=== PATIENT | male | born 1960 | race Hispanic/Latino ===

== ENCOUNTER 2018-11-30 14:47 | Inpatient (IN) | payer MEDICAID, OTHER ==
--- NOTE | 2018-11-30 15:22 | Emergency Department Report ---
Blank Doc - Documentation Documentation: This is a 58-year-old male that presents with chest pain and SOB. HX of [place]. This initial assessment/diagnostic orders/clinical plan/treatment(s) is/are subject to change based on patient's health status, clinical progression and re- assessment by fellow clinical providers in the ED. Further treatment and workup at subsequent clinical providers discretion. Patient/guardians urged not to elope from the ED as their condition may be serious if not clinically assessed and managed. Initial orders include: 1- Patient sent to MAIN ED for further evaluation and treatment 2- CXR 3- EKG 4- labs
[2018-11-30 16:03] LABS: Basophils % (Auto) 0.5 % (0.0-1.8); Eosinophils # (Auto) 0.2 K/mm3 (0.0-0.4); Eosinophils % (Auto) 2.4 % (0.0-4.3); Hemoglobin 14.7 gm/dl (11.8-15.2); Lymphocytes # (Auto) 1.8 K/mm3 (1.2-5.4); Lymphocytes % (Auto) 28.8 % (13.4-35.0); Mean Corpuscular HGB Conc 33 % (32-34); Mean Corpuscular Volume 87 fl (84-94); Monocytes # (Auto) 0.6 K/mm3 (0.0-0.8); Monocytes % (Auto) 9.9 % (0.0-7.3); Platelet Count 243 K/mm3 (140-440); Red Blood Count 5.05 M/mm3 (3.65-5.03)
[2018-11-30 16:12] LABS: INR 0.95 (0.87-1.13)
[2018-11-30 16:13] LABS: Partial Thromboplastin Time 27.3 Sec. (24.2-36.6)
[2018-11-30 16:24] LABS: Alanine Aminotransferase 39 units/L (7-56); Albumin 4.4 g/dL (3.9-5); BUN/Creatinine Ratio 12; Blood Urea Nitrogen 12 mg/dL (9-20); Calcium 9.2 mg/dL (8.4-10.2); Hemolysis Index 38
[2018-11-30] MEDS ORDERED: NORCO 5/325 PO ONE (17:13)
[2018-11-30] MEDS ORDERED: PEPCID IV ONE (17:13)
[2018-11-30] MEDS ORDERED: DUONEB *Not for PRN Use IH ONE (17:13)
[2018-11-30] MEDS ORDERED: SOLU-Medrol IV ONE (17:13)
--- NOTE | 2018-11-30 17:23 | XRay Report ---
PROCEDURE: XR CHEST ROUTINE 2V HISTORY: Chest Pain FINDINGS: Frontal and lateral views the chest were acquired. The heart is mildly large. There is mild hyperinflation of the lungs. There is no consolidative pulmonary infiltrate. The pulmonary vasculatu re is within normal limits. IMPRESSION: The heart is mildly large Hyperinflation consistent with mild COPD This document is electronically signed by Kermit Hernandez MD., Nov 30 2018 05:21:53 PM ET
--- NOTE | 2018-11-30 17:24 | Emergency Department Report ---
ED Chest Pain HPI - General Chief Complaint: Chest Pain Stated Complaint: POSS HEART ATTACK Time Seen by Provider: 11/30/18 15:21 Source: patient Mode of arrival: Ambulatory Limitations: No Limitations - History of Present Illness Initial Comments: 58-year-old male with past medical history CVA with no residual deficit, hypertension, NE 2 with 2 stents, and COPD (no home O2) presents to the hospital with complaints of left-sided chest pain intermittent since this morning. Patient had left-sided chest pain described as stabbing with pain radiation to his left shoulder and arm. Patient has chronic shortness of breath due to COPD. He denies nausea, vomiting and complains of mild diaphoresis. Episode occurred this morning and then reoccurred this afternoon. Patient just traveled here from [place] 6 days ago via airplane. He denies Numbness, leg edema, or history of PE/DVT. Patient has 2 stents in his heart. He's been noncompliant with all his medications for at least 6 months including Plavix and aspirin. He also started smoking again in June. He doesn't have any medication for COPD as well. Patient's PMD is located in [place]. - Related Data Allergies Allergy/AdvReac Type Severity Reaction Status Date / Time No Known Allergies Allergy Unverified 11/30/18 15:20 Heart Score - HEART Score History: Slightly suspicious EKG: Non-specific Age: 45-65 Risk factors: > 3 risk factors or hx of atherosclerotic disease Troponin: < normal limit HEART Score: 4 ED Review of Systems ROS: Stated complaint: POSS HEART ATTACK Other details as noted in HPI Comment: All other systems reviewed and negative ED Past Medical Hx - Past Medical History Hx Hypertension: Yes Hx CVA: Yes (no deficit) Hx Heart Attack/AMI: Yes Hx Kidney Stones: Yes - Surgical History Additional Surgical History: brain surg - Social History Smoking Status: Current Every Day Smoker Substance Use Type: Alcohol ED Physical Exam - General Limitations: No Limitations - Other Other exam information: General: No limitations, patient is alert in no acute distress Head exam: Atraumatic, normocephalic Eyes exam: Normal appearance ENT: Moist mucous membrane Neck exam: Normal inspection, full range of motion, no meningismus nontender Respiratory exam: Mild expiratory wheeze without rales, crackles, or accessory muscle use Cardiovascular: Normal rate and rhythm, tenderness along the left pectoralis muscle extending to show Abdomen: Soft, nondistended, and nontender, with normal bowel sounds, no rebound, or guarding Extremity: Full range of motion normal inspection no deformity, tenderness or edema Back: Normal Inspection, full range of motion, no tenderness Neurologic: Alert, oriented x3, cranial nerves intact, no motor or sensory deficit Psychiatric: normal affect, normal mood Skin: Warm, dry, intact ED Course Vital Signs 11/30/18 11/30/18 11/30/18 15:20 18:25 18:35 Temperature 97.4 F L Pulse Rate 103 H 87 99 H Respiratory 24 18 Rate Blood Pressure 155/110 130/65 Blood Pressure 194/131 [Right] O2 Sat by Pulse 97 100 Oximetry 11/30/18 11/30/18 11/30/18 19:01 20:02 20:05 Temperature Pulse Rate 97 H 107 H 101 H Respiratory 18 20 30 H Rate Blood Pressure Blood Pressure 197/130 176/139 164/118 [Right] O2 Sat by Pulse 100 97 96 Oximetry 11/30/18 21:29 Temperature Pulse Rate 109 H Respiratory 25 H Rate Blood Pressure Blood Pressure 121/69 [Right] O2 Sat by Pulse 98 Oximetry - Consultations Consultation #1: 11/30/18 20:23 case d/w Dr Britany walker cardiology solution advisor. Recommend heparin drip once blood pre ssure decreases to systolic of 150. Also recommends a statin, beta jb, and aspirin. DOUGLAS score - Douglas Score Age > 65: (0) No Aspirin use within the Past 7 Days: (0) No 3 or more CAD Risk Factors: (1) Yes 2 or more Angina events in past 24 hrs: (1) Yes Known CAD with more than 50% Stenosis: (0) No Elevated Cardiac Markers: (1) Yes ST Deviation Greater than 0.5mm: (0) No DOUGLAS Score: 3 ED Medical Decision Making - Lab Data Result diagrams: 11/30/18 15:30 11/30/18 15:30 Lab Results 11/30/18 11/30/18 11/30/18 Range/Units 15:30 15:30 15:30 WBC 6.3 (4.5-11.0) K/mm3 RBC 5.05 H (3.65-5.03) M/mm3 Hgb 14.7 (11.8-15.2) gm/dl Hct 44.0 (35.5-45.6) % MCV 87 (84-94) fl MCH 29 (28-32) pg MCHC 33 (32-34) % RDW 14.0 (13.2-15.2) % Plt Count 243 (140-440) K/mm3 Lymph % (Auto) 28.8 (13.4-35.0) % White % (Auto) 9.9 H (0.0-7.3) % Eos % (Auto) 2.4 (0.0-4.3) % Baso % (Auto) 0.5 (0.0-1.8) % Lymph # 1.8 (1.2-5.4) K/mm3 White # 0.6 (0.0-0.8) K/mm3 Eos # 0.2 (0.0-0.4) K/mm3 Baso # 0.0 (0.0-0.1) K/mm3 Seg Neutrophils % 58.4 (40.0-70.0) % Seg Neutrophils # 3.7 (1.8-7.7) K/mm3 PT 13.2 (12.2-14.9) Sec. INR 0.95 (0.87-1.13) APTT 27.3 (24.2-36.6) Sec. D-Dimer (0-234) ng/mlDDU Sodium 139 (137-145) mmol/L Potassium 4.6 (3.6-5.0) mmol/L Chloride 104.9 (98-107) mmol/L Carbon Dioxide 20 L (22-30) mmol/L Anion Gap 19 mmol/L BUN 12 (9-20) mg/dL Creatinine 1.0 (0.8-1.5) mg/dL Estimated GFR > 60 ml/min BUN/Creatinine Ratio 12 % Glucose 108 H (75-100) mg/dL Calcium 9.2 (8.4-10.2) mg/dL Total Bilirubin 0.30 (0.1-1.2) mg/dL AST 55 H (5-40) units/L ALT 39 (7-56) units/L Alkaline Phosphatase 77 (35-129) units/L Troponin T < 0.010 (0.00-0.029) ng/mL Total Protein 7.3 (6.3-8.2) g/dL Albumin 4.4 (3.9-5) g/dL Albumin/Globulin Ratio 1.5 % Triglycerides (2-149) mg/dL Cholesterol (50-199) mg/dL LDL Cholesterol Direct (50-130) mg/dL HDL Cholesterol (40-59) mg/dL Cholesterol/HDL Ratio % 11/30/18 11/30/18 Range/Units 15:33 18:29 WBC (4.5-11.0) K/mm3 RBC (3.65-5.03) M/mm3 Hgb (11.8-15.2) gm/dl Hct (35.5-45.6) % MCV (84-94) fl MCH (28-32) pg MCHC (32-34) % RDW (13.2-15.2) % Plt Count (140-440) K/mm3 Lymph % (Auto) (13.4-35.0) % White % (Auto) (0.0-7.3) % Eos % (Auto) (0.0-4.3) % Baso % (Auto) (0.0-1.8) % Lymph # (1.2-5.4) K/mm3 White # (0.0-0.8) K/mm3 Eos # (0.0-0.4) K/mm3 Baso # (0.0-0.1) K/mm3 Seg Neutrophils % (40.0-70.0) % Seg Neutrophils # (1.8-7.7) K/mm3 PT (12.2-14.9) Sec. INR (0.87-1.13) APTT (24.2-36.6) Sec. D-Dimer 390.93 H (0-234) ng/mlDDU Sodium (137-145) mmol/L Potassium (3.6-5.0) mmol/L Chloride (98-107) mmol/L Carbon Dioxide (22-30) mmol/L Anion Gap mmol/L BUN (9-20) mg/dL Creatinine (0.8-1.5) mg/dL Estimated GFR ml/min BUN/Creatinine Ratio % Glucose (75-100) mg/dL Calcium (8.4-10.2) mg/dL Total Bilirubin (0.1-1.2) mg/dL AST (5-40) units/L ALT (7-56) units/L Alkaline Phosphatase (35-129) units/L Troponin T 0.070 H D (0.00-0.029) ng/mL Total Protein (6.3-8.2) g/dL Albumin (3.9-5) g/dL Albumin/Globulin Ratio % Triglycerides 92 (2-149) mg/dL Cholesterol 171 (50-199) mg/dL LDL Cholesterol Direct 128 (50-130) mg/dL HDL Cholesterol 44 (40-59) mg/dL Cholesterol/HDL Ratio 3.88 % - EKG Data -: EKG Interpreted by Me (old ant infract, lvh with repol) EKG shows normal: sinus rhythm, axis (qrs -53), QRS complexes (qrsd 85), ST-T waves (no stemi) Rate: tachycardia (110) - EKG Data When compared to previous EKG there are: previous EKG unavailable - Radiology Data Radiology results: report reviewed PROCEDURE: CT ANGIO CHEST TECHNIQUE: Computerized tomographic angiography of the chest was performed during the IV injection of iodinated nonionic contrast including image processing. The image data was postprocessed using 2-dimensional multiplanar reformatted (MPR) and 3-dimensional (MIP and/or volume rendered) techniques. Automated exposure control, adjustment of mA and/or kV according to patient size, or iterative reconstruction dose optimization techniques were utilized. CT DOSE LENGTH PRODUCT: 814.6 mGycm HISTORY: sob, left cp, recent travel, copd . Evaluate pulmonary embolus COMPARISONS: None . FINDINGS: Pulmonary out flow tract, right and left main pulmonary arteries and the approximal branches: Clear, no filling defects seen to suggest pulmonary embolus. Pericardium: No evidence of pericardial effusion. Thoracic aorta: No evidence of aneurysmal dilatation or dissection. Coronary arteries: Partially calcified indicating atherosclerotic disease. Mediastinum and hilar regions: Non specific subcentimeter lymph nodes are v isualized scattered in the hilar and mediastinal regions. There is also a mildly enlarged lymph node in the right infra carinal space measuring 1.6 cm x 1.5 cm. Lung Pappas: [id number] emphysematous changes visualized in the upper lung pappas, lesser changes visualized inferiorly. Small amount of dependent atelectasis is visualized. There are a few nonspecific scattered groundglass densities visualized bilaterally. No dense consolidations masses effusions or pneumothorax are visualized. Upper abdomen: No acute or focal abnormality is seen. Other: There is mild deformity of a a few left ribs posteriorly consistent with old healed fractures. No acute bone abnormalities are identified. IMPRESSION: No evidence of pulmonary embolus. Emphysematous changes are present as described. Nonspecific pulmonary densities scattered in the lung pappas. No dense consolidations masses or effusions are seen. Minimal adenopathy as described. Atherosclerosis coronary arteries. PROCEDURE: XR CHEST ROUTINE 2V HISTORY: Chest Pain FINDINGS: Frontal and lateral views the chest were acquired. The heart is mildly large. There is mild hyperinflation of the lungs. There is no consolidative pulmonary infiltrate. The pulmonary vasculature is within normal limits. IMPRESSION: The heart is mildly large Hyperinflation consistent with mild COPD - Medical Decision Making htn not improved with NTG paste therefore nitroglycerin drip ordered since second troponin is elevated compared to previous. Patient did receive aspirin. Patient received neb treatments and Solu-Medrol for wheezing and COPD. CT angiogram chest negative for pulmonary embolus. Case discussed with lead infrastructure architect. Patient be admitted to the hospital for further treatment. - Differential Diagnosis muscular skeletal pain, PE, unstable angina, NE, COPD, hypertensive emergen Critical Care Time: Yes Critical care time in (mins) excluding proc time.: 35 Critical care attestation.: If time is entered above; I have spent that time in minutes in the direct care of this critically ill patient, excluding procedure time. ED Disposition Clinical Impression: Chest pain, COPD exacerbation, Hx of heart artery stent, Elevated troponin, Uncontrolled hypertension, Noncompliance with medication regimen Disposition: OP ADMIT IP TO THIS HOSP Is pt being admited?: Yes Condition: Stable Time of Disposition: 20:27 (dr Darnell/cristian/hosp)
[2018-11-30] MEDS ORDERED: NITRO-BID 2% TP ONE (17:26)
[2018-11-30] MEDS: ASPIRIN PO ONE ×2 (18:24→19:22)
[2018-11-30 19:55] LABS: Chol/HDL Ratio 3.88 %
--- NOTE | 2018-11-30 20:12 | Cat Scan Report ---
PROCEDURE: CT ANGIO CHEST TECHNIQUE: Computerized tomographic angiography of the chest was performed during the IV injection o f iodinated nonionic contrast including image processing. The image data was postprocessed using 2-d imensional multiplanar reformatted (MPR) and 3-dimensional (MIP and/or volume rendered) techniques. A utomated exposure control, adjustment of mA and/or kV according to patient size, or iterative reconst ruction dose optimization techniques were utilized. CT DOSE LENGTH PRODUCT: 814.6 mGycm HISTORY: sob, left cp, recent travel, copd . Evaluate pulmonary embolus COMPARISONS: None . FINDINGS: Pulmonary out flow tract, right and left main pulmonary arteries and the approximal branches: Clear, no filling defects seen to suggest pulmonary embolus. Pericardium: No evidence of pericardial effusion. Thoracic aorta: No evidence of aneurysmal dilatation or dissection. Coronary arteries: Partially calcified indicating atherosclerotic disease. Mediastinum and hilar regions: Non specific subcentimeter lymph nodes are visualized scattered in the hilar and mediastinal regions. There is also a mildly enlarged lymph node in the right infra carinal space measuring 1.6 cm x 1.5 cm. Lung Pappas: [id number] emphysematous changes visualized in the upper lung pappas, lesser wang es visualized inferiorly. Small amount of dependent atelectasis is visualized. There are a few nonspe cific scattered groundglass densities visualized bilaterally. No dense consolidations masses effusion s or pneumothorax are visualized. Upper abdomen: No acute or focal abnormality is seen. Other: There is mild deformity of a a few left ribs posteriorly consistent with old healed fractures. No acute bone abnormalities are identified. IMPRESSION: No evidence of pulmonary embolus. Emphysematous changes are present as described. Nonspecific pulmonary densities scattered in the lung pappas. No dense consolidations masses or effus ions are seen. Minimal adenopathy as described. Atherosclerosis coronary arteries. This document is electronically signed by Joseph Guillaume MD., Nov 30 2018 08:10:03 PM ET
[2018-11-30] MEDS ORDERED: HEPARIN 10,000 UNITS/10 ML IV ONE (20:28)
[2018-11-30] MEDS ORDERED: TRIDIL DRIP 50MG/250ML 50 MG/250 ML BOTTLE IV SCH (21:00)
[2018-11-30] MEDS ORDERED: TRIDIL DRIP 50MG/250ML 50 MG/250 ML BOTTLE ONE (21:02)
[2018-11-30] MEDS ORDERED: ZOFRAN IV PRN (22:10)
[2018-11-30] MEDS ORDERED: TYLENOL PR PRN (22:10)
[2018-11-30] MEDS ORDERED: HEPARIN 10,000 UNITS/10 ML ONE (22:34)
[2018-11-30] MEDS ORDERED: MORPHINE ONE (22:50)
[2018-11-30] MEDS ORDERED: HEPARIN/ 0.45% NACL-25,000 UNIT/500 ML 25,000 UNIT/500 ML BAG ONE (22:50)
[2018-11-30] MEDS: MORPHINE IV PRN (22:56)
[2018-11-30] MEDS: HEPARIN/ 0.45% NACL-25,000 UNIT/500 ML 25,000 UNIT/500 ML BAG IV SCH (22:57)
[2018-12-01] MEDS: AMBIEN PO PRN ×2 (01:51→22:15)
[2018-12-01] MEDS: DUONEB *Not for PRN Use IH SCH ×4 (01:58→20:41)
[2018-12-01 05:24] LABS: Creatine Kinase MB 16.2 ng/mL (0.0-4.0)
[2018-12-01] MEDS: SOLU-Medrol IV SCH ×3 (06:17→22:14)
--- NOTE | 2018-12-01 08:39 | History and Physical Report ---
CHIEF COMPLAINT: Chest pain. HISTORY OF PRESENT ILLNESS: The patient is a 58-year-old male with past medical history of coronary artery disease, status post myocardial infarction and stent placement presenting with chest pain which the patient states started since morning and affected the left chest area. The patient described the pain as starting with radiation to the left shoulder and arm area. There is history of chronic shortness of breath that the patient gets due to COPD. He has no history of nausea or vomiting, but there is history of mild diaphoresis and the patient recently came to [place] from [place] to visit the father which he says was sick. There is no history of numbness, no history of dizziness or altered mental status. The patient is noncompliant with his medications, going on for about 6 months and this include Plavix and aspirin. The patient was noted to have started smoking again since June after quitting. PAST MEDICAL HISTORY: Pertinent for hypertension, cerebrovascular accident, coronary artery disease, status post myocardial infarction, kidney stones. PAST SURGICAL HISTORY: Pertinent for brain surgery. FAMILY HISTORY: Noncontributory. SOCIAL HISTORY: The patient smokes cigarettes. Drinks alcohol and does not use illicit drug. MEDICATIONS: The patient's home medications are not known. ALLERGIES: There are no known drug allergies. REVIEW OF SYSTEMS: CONSTITUTIONAL: There is no fever, no chills, no diaphoresis. HEENT: There is no headache or sore throat. CARDIOVASCULAR SYSTEM: Chest pain is present. No orthopnea. RESPIRATORY SYSTEM: There is shortness of breath and no cough. GASTROINTESTINAL SYSTEM: There is no nausea, no vomiting, no abdominal pain, diarrhea or constipation. NEUROLOGICAL SYSTEM: There is no numbness, no dizziness, no altered mental status. MUSCULOSKELETAL SYSTEM: There is no joint pain or swelling. DERMATOLOGIC SYSTEM: There is no skin rash or itching. GENITOURINARY SYSTEM: There is no dysuria, hematuria, or flank pain. Rest of system review is normal. PHYSICAL EXAMINATION: GENERAL: At the time of exam, the patient was found to be alert and oriented x 3 and not in acute distress. VITAL SIGNS: At the initial time of presentation show a temperature of 97.4 degrees Fahrenheit, pulse of 103, respirations 24, blood pressure ____, and O2 sat of 97% on room air. Repeat vital signs do show blood pressure to be on the high side. HEENT: Showed pupils to be equal, round, reactive to light and accommodating. Extraocular muscles are intact. NECK: Supple with no JVD or carotid bruit. CARDIOVASCULAR SYSTEM: Showed normal first and second heart sounds with no gallops or murmur. RESPIRATORY SYSTEM: Show good air entry on both sides of the lungs with no abnormal breath sounds. GASTROINTESTINAL SYSTEM: Show abdomen to be full, soft, nontender with no organomegaly or rigidity. NEUROLOGIC: Shows no focal deficit. MUSCULOSKELETAL SYSTEM: Show no joint swelling or tenderness. DERMATOLOGICAL SYSTEM: Show no skin rash. GENITOURINARY: Showing no costovertebral angle tenderness. PERTINENT LABORATORY DATA AND IMAGING STUDIES: The patient had chest x-rays done that shows mild enlargement of the heart with hyperinflation consistent with mild COPD. Also, the patient had CT angiogram of the chest done and CT angiogram of the chest shows no evidence of pulmonary embolism. There is finding of emphysematous changes and no specific pulmonary densities scattered in the lung field with no dense consolidation, masses, or effusions seen. Minimal adenopathy was described and atherosclerotic coronary arteries were found. LAB RESULTS: The patient had CBC done with normal white count, normal hemoglobin, and normal hematocrit with CBC differential showing elevated monocyte count of 9.9%. Coagulation studies show elevated D-dimer of ____. The patient had CT angiogram of the chest done because of that that shows no pulmonary embolism. The patient's chemistry was unremarkable except for elevated AST of 55 with normal ALT. The patient's cardiac enzymes, initial level shows troponin level less than 0.01 and second troponin level shows elevated value of 0.07. DIAGNOSES: 1. Chest pain. 2. Elevated troponin level. 3. Chronic obstructive pulmonary disease exacerbation. PLAN OF CARE: 1. The patient will be admitted to telemetry. 2. The patient will have serial cardiac enzymes involving troponin, total CK, and CK-MB checked every 6 hours x 2 more levels. 3. The patient will continue IV heparin drip that was started in the Emergency Room. 4. The patient will remain n.p.o. until seen by the hospitality coordinator. 5. The patient will have Cardiology consult with Dr. Jenny Gross and will have ICU consult with Dr. Beard for ICU placement. 6. The patient will continue nitroglycerin drip IV started in the Emergency Room. 7.. The patient will be on IV morphine 2 mg every 3 hours as needed for pain and IV Zofran 4 mg every 8 hours for nausea and vomiting. 8. The patient will be on daily aspirin 325 mg by mouth and will be on Tylenol 650 mg rectally every 4 hours for fever and headache. 9. The patient will remain n.p.o. until seen by the Cardiology. 10. The patient will be on oxygen by nasal cannula 2 L per minute. JOB# [id number] OCN/NTS
--- NOTE | 2018-12-01 09:00 | Consultation ---
History of Present Illness Consult date: 12/01/18 Requesting physician: MALGORZATA GIRON History of present illness: 58-year-old male with past medical history CVA with no residual deficit, hypertension, [place] 2 with 2 stents, and COPD (no home O2) presents to the hospital with complaints of left-sided chest pain intermittent since this morning. Patient had left-sided chest pain described as stabbing with pain radiation to his left shoulder and arm. Patient has chronic shortness of breath due to COPD. He denies nausea, vomiting and complains of mild diaphoresis. Episode occurred this morning and then reoccurred this afternoon. Patient just traveled here from [place] 6 days ago via airplane. He denies Numbness, leg edema, or history of PE/DVT. Patient has 2 stents in his heart. He's been noncompliant with all his medications for at least 6 months including Plavix and aspirin. He also started smoking again in June. He doesn't have any medication for COPD as well. Patient's PMD is located in [place]. Patient was initially admitted to the ICU following initiation of nitroglycerin infusion. His doing well this morning. He is awaiting a cardiology evaluation for possible left heart cardiac catheterization - Past Medical History Hx Hypertension: Yes Hx CVA: Yes (no deficit) Hx Heart Attack/AMI: Yes Hx Kidney Stones: Yes - Surgical History Additional Surgical History: brain surg - Social History Smoking Status: Current Every Day Smoker Substance Use Type: Alcohol Medications and Allergies Allergies Allergy/AdvReac Type Severity Reaction Status Date / Time No Known Allergies Allergy Unverified 11/30/18 15:20 Home Medications Medication Instructions Recorded Confirmed Last Taken Type Aspirin [Aspirin BABY CHEW TAB] 81 mg PO QDAY #30 tab.chew 12/02/18 Unknown Rx AtorvaSTATin [Lipitor] 40 mg PO QHS #30 tablet 12/02/18 Unknown Rx Clopidogrel [Plavix] 75 mg PO QDAY #30 tablet 12/02/18 Unknown Rx ISOSORBIDE MONOnitrate [Imdur ER] 30 mg PO QDAY #30 tablet 12/02/18 Unknown Rx Ipratropium/Albuterol Sulfate 1 ampul IH TIDRT #50 ampul.neb 12/02/18 Unknown Rx [DUONEB *Not for PRN Use*] Lisinopril [Zestril TAB] 10 mg PO QDAY #30 tablet 12/02/18 Unknown Rx Metoprolol Xl [Metoprolol 50 mg PO QDAY #30 tablet 12/02/18 Unknown Rx SUCCINATE ER TAB] Oxycodone HCl/Acetaminophen 1 each PO Q6HR PRN #20 tablet 12/02/18 Unknown Rx [Percocet 7.5/325 mg] Plavix 75 mg PO ONCE #30 12/02/18 Unknown Rx Active Meds: Active Medications Acetaminophen (Tylenol) 650 mg [place] Q4H PRN PRN Reason: Headache Albuterol/Ipratropium (Duoneb *Not For Prn Use*) 1 ampul IH Q6HRT [facility] Last Admin: 12/01/18 08:46 Dose: 1 ampul Documented by: Aspirin (Aspirin) 325 mg PO QDAY [facility] Nitroglycerin/Dextrose (Tridil Drip 50mg/250ml) 50 mg in 250 mls @ 3 mls/hr IV TITR [facility]IE; Protocol Last Titration: 11/30/18 22:15 Dose: 10 mcg/min, 3 mls/hr Documented by: Heparin Sodium/Sodium Chloride (Heparin/ 0.45% Nacl-25,000 Unit/500 Ml) 25,000 unit in 500 mls @ 20 mls/hr IV TITRATE [facility]; Protocol Last Titration: 12/01/18 05:43 Dose: 1,000 units/hr, 20 mls/hr Documented by: Methylprednisolone Sodium Succinate (Solu-Medrol) 60 mg IV Q8HR [facility] Last Admin: 12/01/18 06:17 Dose: 60 mg Documented by: Morphine Sulfate (Morphine) 2 mg IV Q3H PRN PRN Reason: Pain, Moderate (4-6) Last Admin: 11/30/18 22:56 Dose: 2 mg Documented by: Ondansetron HCl (Zofran) 4 mg IV Q8H PRN PRN Reason: Nausea And Vomiting Zolpidem Tartrate (Ambien) 5 mg PO QHS PRN PRN Reason: Sleep Last Admin: 12/01/18 01:51 Dose: 5 mg Documented by: Physical Examination Vital signs: Vital Signs Temp Pulse Resp BP Pulse Ox 97.4 F L 103 H 24 155/110 97 11/30/18 15:20 11/30/18 15:20 11/30/18 15:20 11/30/18 15:20 11/30/18 15:20 General appearance: no acute distress Eyes: non-icteric ENT: oropharynx moist Neck: supple, no lymphadenopathy, no JVD Effort: normal Ascultation: Bilateral: clear Cardiovascular: regular rate and rhythm, other (S1,S2, no mururs, gallops or rubs) Gastrointestinal: normoactive bowel sounds, soft, non-tender, non-distended Integumentary: normal Extremities: no cyanosis, no edema, pulses normal, no ischemia or petechiae Musculoskeletal: no deformities normal mental status, non-focal exam, pupils equal and round, CN II-XII normal, motor strength normal and mood appropriate, affect normal Results - Laboratory Findings CBC and BMP: 12/02/18 04:07 12/02/18 04:07 PT/INR, D-dimer PT 13.2 Sec. (12.2-14.9) 11/30/18 15:30 INR 0.95 (0.87-1.13) 11/30/18 15:30 390.93 ng/mlDDU (0-234) H 11/30/18 15:33 Abnormal lab findings: Abnormal Labs 11/30/18 11/30/18 11/30/18 15:30 15:30 15:33 RBC 5.05 H [place] % (Auto) 9.9 H D-Dimer 390.93 H Carbon Dioxide 20 L Glucose 108 H AST 55 H CK-MB (CK-2) CK-MB (CK-2) Rel Index Troponin T 11/30/18 12/01/18 12/01/18 18:29 04:44 07:08 RBC [place] % (Auto) D-Dimer Carbon Dioxide Glucose AST CK-MB (CK-2) 16.2 H 16.0 H CK-MB (CK-2) Rel Index 10.8 H 10.9 H Troponin T 0.070 H D 0.047 H D 0.050 H - Diagnostic Findings Chest x-ray: image reviewed (No acute infiltrates, "dirty lung look") CT scan - chest: report reviewed (No PE, emphysematous changes) Assessment and Plan DIAGNOSIS (1) NSTEMI (non-ST elevated myocardial infarction) (2) Uncontrolled hypertension (3) CAD (coronary artery disease) (4) Stented coronary artery (5) COPD (chronic obstructive pulmonary disease) -Emphysematous changes on CT imaging (6) History of CVA (cerebrovascular accident) without residual deficits (7) Noncompliance with medication regimen (8) Tobacco use disorder (9) EtOH dependence (10) Elevated D-dimer, negative CTA PLAN -Continue cardioprotective measures -Trend troponins per protocol -Wean nitroglycerine infusion -VTE prophylaxis -Nicotine withdrawal precautions -Bronchodilaotrs per protocol -Monitor for alcohol withdrawal, give a banana bag -Smoking and alcohol abuse counselling -Supplemental oxygen to keep O2 sats >90% -Blood pressure control, -Resume chronic home medications -Need for medical compliance and adherence discussed extensively -Await final cardiology recommendations Discussed care extensively in ICU-IDT rounds. Updated patient re care plan Discussed with hospitalist service. The high probability of a clinically significant, sudden or life threatening deterioration of the [cardiac] system(s) required my full and direct attention, intervention and personal management. The aggregate critical care time was [35] minutes. This time is in addition to time spent performing reported procedures but includes the following: [x] Data Review and interpretation [x] Patient assessment and monitoring of vital signs [x] Documentation [x] Medication orders and management
[2018-12-01] MEDS: TOPROL XL PO SCH (09:51)
[2018-12-01] MEDS: ASPIRIN PO SCH (09:51)
[2018-12-01] MEDS: MORPHINE IV PRN ×3 (09:51→22:16)
[2018-12-01] MEDS: ZESTRIL PO SCH (09:52)
--- NOTE | 2018-12-01 11:35 | Consultation ---
History of Present Illness Consult date: 12/01/18 Requesting physician: ANDREINA GUERRA Consult reason: chest pain, elevated troponin History of present illness: The pt is a 58-year-old male with past medical history CAD s/p AMI with PCI x 2 in , CVA in with no residual deficit, hypertension, COPD (no home O2), tobacco use, ETOH use (drinks 1/5 vodka daily), noncompliance. He is previously unknown to our practice. He currently resides in [place], [place] and is in the area visiting his family. He presented with c/o chest pain since yesterday morning. He states that awoke yesterday morning in his normal state of health and was running errands with his father when he noted the onset of chest pain. He describes his chest pain as an intermittent left-sided pressure which radiated down his left arm. The pain was associated with diaphoresis and some SOB. The pain was alleviated by initiation of heparin and nitro gtts. He admits that he has not taken any prescription medications, including ASA or Plavix, in about 3 years. On evaluation, he denies any current chest pain. Past History Past Medical History: acute MD, CAD, COPD, hyperlipidemia, stroke Social history: smoking, alcohol abuse. denies: prescription drug abuse Medications and Allergies Allergies Allergy/AdvReac Type Severity Reaction Status Date / Time No Known Allergies Allergy Unverified 11/30/18 15:20 Home Medications Medication Instructions Recorded Confirmed Last Taken Type Lisinopril [Zestril TAB] 10 mg PO QDAY 12/01/18 12/01/18 07/01/18 History Plavix 75 mg PO ONCE 12/01/18 12/01/18 07/01/18 History Active Meds: Active Medications Acetaminophen (Tylenol) 650 mg [place] Q4H PRN PRN Reason: Headache Albuterol/Ipratropium (Duoneb *Not For Prn Use*) 1 ampul IH Q6HRT [facility] Last Admin: 12/01/18 08:46 Dose: 1 ampul Documented by: Aspirin (Aspirin) 325 mg PO QDAY [facility] Last Admin: 12/01/18 09:51 Dose: 325 mg Documented by: Atorvastatin Calcium (Lipitor) 40 mg PO QHS [facility] Nitroglycerin/Dextrose (Tridil Drip 50mg/250ml) 50 mg in 250 mls @ 3 mls/hr IV TITR [facility]; Protocol Last Titration: 12/01/18 10:25 Dose: 0 mcg/min, 0 mls/hr Documented by: Heparin Sodium/Sodium Chloride (Heparin/ 0.45% Nacl-25,000 Unit/500 Ml) 25,000 unit in 500 mls @ 20 mls/hr IV TITRATE [facility]; Protocol Last Titration: 12/01/18 05:43 Dose: 1,000 units/hr, 20 mls/hr Documented by: Lisinopril (Zestril) 10 mg PO QDAY [facility] Last Admin: 12/01/18 09:52 Dose: 10 mg Documented by: Methylprednisolone Sodium Succinate (Solu-Medrol) 60 mg IV Q8HR [facility] Stop: 12/01/18 23:59 Last Admin: 12/01/18 06:17 Dose: 60 mg Documented by: Metoprolol Succinate (Toprol Xl) 50 mg PO QDAY [facility] Last Admin: 12/01/18 09:51 Dose: 50 mg Documented by: Morphine Sulfate (Morphine) 2 mg IV Q3H PRN PRN Reason: Pain, Moderate (4-6) Last Admin: 12/01/18 09:51 Dose: 2 mg Documented by: Ondansetron HCl (Zofran) 4 mg IV Q8H PRN PRN Reason: Nausea And Vomiting Zolpidem Tartrate (Ambien) 5 mg PO QHS PRN PRN Reason: Sleep Last Admin: 12/01/18 01:51 Dose: 5 mg Documented by: Review of Systems Constitutional: sweats, no weight loss, no weight gain, no fever, no chills Ears, nose, mouth and throat: no ear pain, no nose pain, no sinus pressure, no sinus pain Cardiovascular: chest pain, shortness of breath, high blood pressure, no orthopnea, no palpitations, no rapid/irregular heart beat, no edema, no syncope, no lightheadedness, no leg edema Respiratory: shortness of breath, no cough, no congestion, no wheezing, no pain on inspiration Gastrointestinal: no abdominal pain, no nausea, no vomiting, no diarrhea, no constipation, no change in bowel habits Genitourinary Male: no dysuria, no hematuria, no flank pain, no discharge, no urinary frequency, no urinary hesitancy Musculoskeletal: no neck stiffness, no neck pain, no shooting arm pain, no arm numbness/tingling, no low back pain, no shooting leg pain Integumentary: no rash, no pruritis, no redness, no sores, no wounds Neurological: no head injury, no paralysis, no weakness, no parathesias, no numbness, no tingling, no seizures, no syncope Psychiatric: no anxiety Endocrine: no cold intolerance, no heat intolerance Hematologic/Lymphatic: no easy bruising, no easy bleeding Allergic/Immunologic: no urticaria, no wheezing Physical Examination Vital Signs Temp Pulse Resp BP Pulse Ox 97.4 F L 103 H 24 155/110 97 11/30/18 15:20 11/30/18 15:20 11/30/18 15:20 11/30/18 15:20 11/30/18 15:20 General appearance: no acute distress HEENT: Positive: PERRL, Normocephaly, Mucus Membranes Moist Neck: Positive: neck supple, trachea midline Cardiac: Positive: Reg Rate and Rhythm, S1/S2 Lungs: Positive: clear to auscultation Neuro: Positive: Grossly Intact Abdomen: Positive: Soft. Negative: Tender Male genitourinary: Negative: tender Skin: Negative: Rash, Wound Musculoskeletal: No Pain Extremities: Absent: edema Results 11/30/18 15:30 11/30/18 15:30 Cardiac Enzymes 11/30/18 12/01/18 12/01/18 Range/Units 15:30 04:44 07:08 AST 55 H (5-40) units/L CK-MB (CK-2) 16.2 H 16.0 H (0.0-4.0) ng/mL Coagulation 11/30/18 Range/Units 15:30 PT 13.2 (12.2-14.9) Sec. INR 0.95 (0.87-1.13) APTT 27.3 (24.2-36.6) Sec. Lipids 11/30/18 Range/Units 18:29 Triglycerides 92 (2-149) mg/dL Cholesterol 171 (50-199) mg/dL HDL Cholesterol 44 (40-59) mg/dL Cholesterol/HDL Ratio 3.88 % CBC 11/30/18 Range/Units 15:30 WBC 6.3 (4.5-11.0) K/mm3 RBC 5.05 H (3.65-5.03) M/mm3 Hgb 14.7 (11.8-15.2) gm/dl Hct 44.0 (35.5-45.6) % Plt Count 243 (140-440) K/mm3 Lymph # 1.8 (1.2-5.4) K/mm3 [place] # 0.6 (0.0-0.8) K/mm3 Eos # 0.2 (0.0-0.4) K/mm3 Baso # 0.0 (0.0-0.1) K/mm3 Comprehensive Metabolic Panel 11/30/18 Range/Units 15:30 Sodium 139 (137-145) mmol/L Potassium 4.6 (3.6-5.0) mmol/L Chloride 104.9 (98-107) mmol/L Carbon Dioxide 20 L (22-30) mmol/L BUN 12 (9-20) mg/dL Creatinine 1.0 (0.8-1.5) mg/dL Glucose 108 H (75-100) mg/dL Calcium 9.2 (8.4-10.2) mg/dL AST 55 H (5-40) units/L ALT 39 (7-56) units/L Alkaline Phosphatase 77 (35-129) units/L Total Protein 7.3 (6.3-8.2) g/dL Albumin 4.4 (3.9-5) g/dL - Imaging and Cardiology Echo: pending Cardiac cath: pending EKG: report reviewed, image reviewed EKG interpretations - Telemetry EKG Rhythm: Sinus Rhythm - EKG Sinus rhythms and dysrhythmias: sinus rhythm Chamber hypertrophy or enlargement: left ventricular hypertro Repolarization changes or abnormalities: nonspecific abnormality, ST segment, and/or T wave Assessment and Plan Agree with heparin gtt. Wean nitro gtt off as tolerated. Optimize anti-ischemic regimen. Cont to trend [place] and repeat ECG in AM. Pending nitro gtt is weaned off, pt may tx out of CCU to telemetry from cardiology standpoint. Coronary angiography recommended. Indications, potential risks and benefits re viewed with pt and he is agreeable to proceed with LHC in AM. NPO after MN. F/u echo. The patient has been seen in conjunction with Dr. Stone who agrees with the assessment and plan of care. - Patient Problems (1) NSTEMI (non-ST elevated myocardial infarction) Current Visit: Yes Status: Acute (2) Uncontrolled hypertension Current Visit: Yes Status: Chronic (3) CAD (coronary artery disease) Current Visit: Yes Status: Chronic (4) Stented coronary artery Current Visit: Yes Status: Chronic (5) COPD (chronic obstructive pulmonary disease) Current Visit: Yes Status: Chronic (6) History of CVA (cerebrovascular accident) without residual deficits Current Visit: Yes Status: Chronic (7) Noncompliance with medication regimen Current Visit: Yes Status: Chronic (8) Tobacco use Current Visit: Yes Status: Chronic (9) EtOH dependence Current Visit: Yes Status: Chronic
[2018-12-01] MEDS: NACL 0.9% 500 ML 500 ML IV SCH (14:01)
--- NOTE | 2018-12-01 16:37 | Progress Note ---
Assessment and Plan Assessment and plan: Patient's 58-year-old male with past medical history CVA with no residual deficit, hypertension, [place] 2 with 2 stents, and COPD (no home O2) presents to the hospital with complaints of left-sided chest pain intermittent with radiation to the left shoulder since this morning. Patient had left-sided chest pain described as stabbing with pain radiation to his left shoulder and arm. Patient has chronic shortness of breath due to COPD. Patient just traveled here from [place] 6 days ago via airplane. Patient has 2 stents in his heart but unfortunately has been noncompliant with all his medications for at least 6 months including Plavix and aspirin. He also started smoking again in June. He doesn't have any medication for COPD as well. Patient was initially admitted to the ICU following initiation of nitroglycerin GTT. His doing well this morning. He is awaiting a cardiology evaluation for possible left heart cardiac catheterization (1) NSTEMI (non-ST elevated myocardial infarction) (2) Uncontrolled hypertension (3) CAD (coronary artery disease) (4) Stented coronary artery (5) COPD (chronic obstructive pulmonary disease) (6) History of CVA (cerebrovascular accident) without residual deficits (7) Noncompliance with medication regimen (8) Tobacco use (9) EtOH dependence plan Continue supportive care wean nitro drip Continue aspirin, heparin drip, statin therapy, Extensive counseling about compliance with medical management discussed with the patient he verbalized understanding Patient to be transferred to telemetry wants off nitro drip and plan for connective embolization in a.m. A DVT and GI prophylaxis Monitor for any sign of EtOH withdrawal Plan of care discussed with the patient in detail and also nursing staff History Interval history: Patient seen and examined this morning admitted with shortness of breath and chest pain and reports improvement today. Hospitalist Physical - Physical exam Narrative exam: VITAL SIGNS: Reviewed. GENERAL: The patient appeared well nourished and normally developed, Vital signs as documented. HEAD: No signs of head trauma. EYES: Pupils are equal. Extraocular motions intact. EARS: Hearing grossly intact. MOUTH: Oropharynx is normal. NECK: No adenopathy, no JVD. Mildly tender on the right side. CHEST: Chest with clear breath sounds bilaterally. No wheezes, rales, or rhonchi. CARDIAC: Regular rate and rhythm. S1 and S2, without murmurs, gallops, or rubs. VASCULAR: No Edema. Peripheral pulses normal and equal in all extremities. ABDOMEN: Soft, non tender and non distended. No rebound or guarding, and no masses palpated. Bowel Sounds normal. MUSCULOSKELETAL: Good range of motion of all major joints. Extremities without clubbing, cyanosis or edema. NEUROLOGIC EXAM: Alert and oriented x 3 No focal sensory or strength deficits. Speech normal. Follows commands. PSYCHIATRIC: Mood normal. SKIN: No rash or lesions. - Constitutional Vitals: Temp Pulse Resp BP Pulse Ox 97.5 F L 70 22 116/79 90 12/01/18 16:00 12/01/18 14:51 12/01/18 14:51 12/01/18 14:31 12/01/18 14:31 General appearance: Present: no acute distress Results - Labs CBC & Chem 7: 11/30/18 15:30 11/30/18 15:30 Labs: Laboratory Last Values WBC 6.3 K/mm3 (4.5-11.0) 11/30/18 15:30 RBC 5.05 M/mm3 (3.65-5.03) H 11/30/18 15:30 Hgb 14.7 gm/dl (11.8-15.2) 11/30/18 15:30 Hct 44.0 % (35.5-45.6) 11/30/18 15:30 MCV 87 fl (84-94) 11/30/18 15:30 MCH 29 pg (28-32) 11/30/18 15:30 MCHC 33 % (32-34) 11/30/18 15:30 RDW 14.0 % (13.2-15.2) 11/30/18 15:30 Plt Count 243 K/mm3 (140-440) 11/30/18 15:30 Lymph % (Auto) 28.8 % (13.4-35.0) 11/30/18 15:30 [place] % (Auto) 9.9 % (0.0-7.3) H 11/30/18 15:30 Eos % (Auto) 2.4 % (0.0-4.3) 11/30/18 15:30 Baso % (Auto) 0.5 % (0.0-1.8) 11/30/18 15:30 Lymph # 1.8 K/mm3 (1.2-5.4) 11/30/18 15:30 [place] # 0.6 K/mm3 (0.0-0.8) 11/30/18 15:30 Eos # 0.2 K/mm3 (0.0-0.4) 11/30/18 15:30 Baso # 0.0 K/mm3 (0.0-0.1) 11/30/18 15:30 Seg Neutrophils % 58.4 % (40.0-70.0) 11/30/18 15:30 Seg Neutrophils # 3.7 K/mm3 (1.8-7.7) 11/30/18 15:30 PT 13.2 Sec. (12.2-14.9) 11/30/18 15:30 INR 0.95 (0.87-1.13) 11/30/18 15:30 APTT 27.3 Sec. (24.2-36.6) 11/30/18 15:30 390.93 ng/mlDDU (0-234) H 11/30/18 15:33 Heparin Anti-Xa Level 0.20 U.I./ml (0.3-0.7) L 12/01/18 12:59 Sodium 139 mmol/L (137-145) 11/30/18 15:30 Potassium 4.6 mmol/L (3.6-5.0) 11/30/18 15:30 Chloride 104.9 mmol/L (98-107) 11/30/18 15:30 Carbon Dioxide 20 mmol/L (22-30) L 11/30/18 15:30 19 mmol/L 11/30/18 15:30 BUN 12 mg/dL (9-20) 11/30/18 15:30 1.0 mg/dL (0.8-1.5) 11/30/18 15:30 Estimated GFR > 60 ml/min 11/30/18 15:30 12 % 11/30/18 15:30 Glucose 108 mg/dL (75-100) H 11/30/18 15:30 POC Glucose 181 (70-105) H 12/01/18 15:52 Calcium 9.2 mg/dL (8.4-10.2) 11/30/18 15:30 0.30 mg/dL (0.1-1.2) 11/30/18 15:30 AST 55 units/L (5-40) H 11/30/18 15:30 ALT 39 units/L (7-56) 11/30/18 15:30 77 units/L (35-129) 11/30/18 15:30 146 units/L (55-170) 12/01/18 07:08 CK-MB (CK-2) 16.0 ng/mL (0.0-4.0) H 12/01/18 07:08 CK-MB (CK-2) Rel Index 10.9 (0-4) H 12/01/18 07:08 0.050 ng/mL (0.00-0.029) H 12/01/18 07:08 7.3 g/dL (6.3-8.2) 11/30/18 15:30 4.4 g/dL (3.9-5) 11/30/18 15:30 1.5 % 11/30/18 15:30 Triglycerides 92 mg/dL (2-149) 11/30/18 18:29 Cholesterol 171 mg/dL (50-199) 11/30/18 18:29 128 mg/dL (50-130) 11/30/18 18:29 44 mg/dL (40-59) 11/30/18 18:29 3.88 % 11/30/18 18:29 Active Medications - Current Medications Current Medications: Generic Name Dose Route Start Last Admin Trade Name Freq PRN Reason Stop Dose Admin Acetaminophen 650 mg 11/30/18 22:10 Tylenol CO Q4H PRN Headache Albuterol/Ipratropium 1 ampul 12/01/18 02:00 12/01/18 14:45 Duoneb *Not For Prn Use* IH 1 ampul Q6HRT [facility] Administration Aspirin 325 mg 12/01/18 10:00 12/01/18 09:51 Aspirin PO 325 mg QDAY [facility] Administration Atorvastatin Calcium 40 mg 12/01/18 22:00 Lipitor PO QHS [facility] Nitroglycerin/Dextrose 50 mg in 250 mls @ 3 mls/hr 11/30/18 21:00 12/01/18 10:25 Tridil Drip 50mg/250ml IV 0 mcg/min TITR [facility] 0 mls/hr Titration Protocol 10 MCG/MIN Heparin Sodium/Sodium Chloride 25,000 unit in 500 mls @ 20 mls/hr 11/30/18 21:00 12/01/18 14:15 Heparin/ 0.45% Nacl-25,000 Unit/500 Ml IV 12/02/18 04:00 1,100 units/hr TITRATE [facility] 22 mls/hr Titration Protocol 1,000 UNITS/HR Sodium Chloride 500 mls @ 50 mls/hr 12/01/18 12:00 12/01/18 14:01 Nacl 0.9% 500 Ml IV 12/01/18 21:59 50 mls/hr DIRECT [facility]IE Administration Lisinopril 10 mg 12/01/18 10:00 12/01/18 09:52 Zestril PO 10 mg QDAY [facility] Administration Methylprednisolone Sodium Succinate 60 mg 12/01/18 06:00 12/01/18 14:00 Solu-Medrol IV 12/01/18 23:59 60 mg Q8HR [facility] Administration Metoprolol Succinate 50 mg 12/01/18 10:00 12/01/18 09:51 Toprol Xl PO 50 mg QDAY [facility] Administration Morphine Sulfate 2 mg 11/30/18 22:08 12/01/18 13:57 Morphine IV 2 mg Q3H PRN Administration Pain, Moderate (4-6) Ondansetron HCl 4 mg 11/30/18 22:10 Zofran IV Q8H PRN Nausea And Vomiting Zolpidem Tartrate 5 mg 12/01/18 00:43 12/01/18 01:51 Ambien PO 5 mg QHS PRN Administration Sleep
[2018-12-02] MEDS ORDERED: PROVENTIL IH PRN (00:36)
[2018-12-02] MEDS: MORPHINE IV PRN ×3 (01:12→18:05)
[2018-12-02] MEDS: HEPARIN/ 0.45% NACL-25,000 UNIT/500 ML 25,000 UNIT/500 ML BAG IV SCH (01:12)
[2018-12-02 05:25] LABS: Basophils % (Auto) 0.1 % (0.0-1.8); Hematocrit 40.6 % (35.5-45.6); Hemoglobin 13.4 gm/dl (11.8-15.2); Lymphocytes # (Auto) 0.7 K/mm3 (1.2-5.4); Lymphocytes % (Auto) 7.1 % (13.4-35.0); Mean Corpuscular HGB Conc 33 % (32-34); Mean Corpuscular Volume 87 fl (84-94); Monocytes # (Auto) 0.3 K/mm3 (0.0-0.8); Monocytes % (Auto) 3.3 % (0.0-7.3); Platelet Count 218 K/mm3 (140-440); Red Blood Count 4.65 M/mm3 (3.65-5.03); Red Cell Distribution Width 14.2 % (13.2-15.2)
[2018-12-02 05:34] LABS: INR 0.92 (0.87-1.13)
[2018-12-02 05:42] LABS: BUN/Creatinine Ratio 21; Blood Urea Nitrogen 17 mg/dL (9-20); Calcium 8.9 mg/dL (8.4-10.2); Hemolysis Index 12
[2018-12-02] MEDS ORDERED: HEPARIN/NS 5000 UNIT/500ML(CATH LAB) 1,000 ML IR ONE (07:02)
[2018-12-02] MEDS ORDERED: ASPIRIN ONE (07:10)
[2018-12-02] MEDS ORDERED: NACL 0.9% 500 ML 500 ML ONE (07:10)
[2018-12-02] MEDS: ASPIRIN PO SCH (07:13)
[2018-12-02] MEDS: VERSED ONE ×2 (07:39→07:54)
[2018-12-02] MEDS: CALAN ONE ×3 (07:40→07:59)
[2018-12-02] MEDS: HEPARIN 10,000 UNITS/10 ML ONE ×3 (07:40→07:59)
[2018-12-02] MEDS: XYLOCAINE 2% INFILTRATI ONE ×3 (07:40→07:57)
[2018-12-02] MEDS: SUBLIMAZE ONE ×3 (07:40→08:20)
[2018-12-02] MEDS: NACL 0.9% 500 ML 500 ML IV SCH (07:41)
[2018-12-02] MEDS: NITROGLYCERIN SYRINGE 3 ML ONE ×2 (07:41→07:59)
[2018-12-02] MEDS: DUONEB *Not for PRN Use IH SCH ×2 (08:00→13:42)
[2018-12-02] MEDS ORDERED: HEPARIN 10,000 UNITS/10 ML ONE (08:09)
[2018-12-02] MEDS ORDERED: PLAVIX ONE (08:23)
[2018-12-02] MEDS ORDERED: ALUM-MAG HYDROX-SIMETH 200-200-20MG/5ML ONE (08:24)
--- NOTE | 2018-12-02 10:02 | Progress Note ---
Assessment and Plan pt had pci of om1 and has small vessel disease, add imdur, cont asa and plavix and post pci care - Patient Problems (1) Hypertension Current Visit: Yes Status: Chronic Qualifiers: Hypertension type: essential hypertension Qualified Code(s): I10 - Essential (primary) hypertension (2) Acute diastolic (congestive) heart failure Current Visit: Yes Status: Acute (3) Hyperlipemia Current Visit: Yes Status: Chronic Qualifiers: Hyperlipidemia type: mixed hyperlipidemia Qualified Code(s): E78.2 - Mixed hyperlipidemia (4) NSTEMI (non-ST elevated myocardial infarction) Current Visit: Yes Status: Acute (5) CAD (coronary artery disease) Current Visit: Yes Status: Chronic Qualifiers: Coronary Disease-Associated Artery/Lesion type: tejon artery Associated angina: with unstable angina (6) COPD (chronic obstructive pulmonary disease) Current Visit: Yes Status: Chronic (7) EtOH dependence Current Visit: Yes Status: Chronic (8) History of CVA (cerebrovascular accident) without residual deficits Current Visit: Yes Status: Chronic (9) Noncompliance with medication regimen Current Visit: Yes Status: Chronic Subjective Date of service: 12/02/18 Principal diagnosis: nstemi Interval history: pt has body pains Objective Vital Signs Temp Pulse Pulse Resp Resp BP Pulse Ox 12/02/18 09:30 66 18 112/81 98 12/02/18 09:15 87 18 120/87 98 12/02/18 09:00 89 15 124/93 97 12/02/18 08:45 97.8 F 87 24 135/96 96 12/02/18 04:23 97.3 F L 99 H 18 138/96 96 12/02/18 02:12 20 12/02/18 01:12 20 12/01/18 23:34 97.4 F L 83 20 125/85 91 12/01/18 22:00 93 H 12/01/18 21:52 122/82 100 12/01/18 21:44 122/82 12/01/18 20:55 85 20 12/01/18 20:45 98 12/01/18 20:44 83 20 12/01/18 20:25 97.3 F L 98 H 18 141/82 95 12/01/18 20:00 20 98 12/01/18 19:06 122/82 83 L 12/01/18 18:49 122/82 05/14/19 18:20 122/82 12/01/18 18:12 122/82 82 L 12/01/18 17:58 122/82 80 L 12/01/18 17:31 95 H 122/82 95 12/01/18 17:21 78 122/82 98 12/01/18 17:11 89 122/82 91 12/01/18 17:00 86 122/82 93 12/01/18 16:51 80 131/91 91 12/01/18 16:41 94 H 131/91 94 12/01/18 16:30 92 H 131/91 94 12/01/18 16:21 87 131/91 92 12/01/18 16:11 102 H 131/91 94 12/01/18 16:01 109 H 131/91 98 12/01/18 16:00 97.5 F L 12/01/18 15:51 92 H 113/67 94 12/01/18 15:41 100 H 113/67 93 12/01/18 15:31 105 H 113/67 96 12/01/18 15:21 96 H 24 113/67 96 12/01/18 15:11 74 27 H 113/67 99 12/01/18 15:00 74 27 H 113/67 92 12/01/18 14:51 91 H 70 25 H 22 116/79 90 12/01/18 14:43 76 27 H 12/01/18 14:41 93 H 28 H 116/79 92 12/01/18 14:31 77 26 H 116/79 90 12/01/18 14:21 84 29 H 116/79 93 12/01/18 14:11 90 26 H 135/84 91 12/01/18 14:01 98 H 31 H 135/84 93 12/01/18 13:51 83 29 H 135/84 95 12/01/18 13:41 111 H 27 H 135/84 97 12/01/18 13:30 103 H 32 H 171/104 94 12/01/18 13:20 106 H 171/104 96 12/01/18 13:10 109 H 25 H 171/104 96 12/01/18 13:01 98 H 13 135/84 95 12/01/18 12:51 110 H 25 H 151/74 94 12/01/18 12:41 98 H 12 151/74 94 05/14/19 12:31 114 H 27 H 151/74 93 12/01/18 12:21 105 H 10 L 151/74 93 12/01/18 12:11 103 H 32 H 164/117 95 12/01/18 12:01 118 H 30 H 164/117 91 12/01/18 12:00 97.7 F 12/01/18 11:51 123 H 18 147/82 97 12/01/18 11:41 110 H 21 164/108 95 12/01/18 11:31 115 H 17 164/108 96 12/01/18 11:21 106 H 13 166/89 97 12/01/18 11:11 110 H 14 171/104 97 12/01/18 11:00 105 H 10 L 160/90 94 12/01/18 10:50 107 H 12 171/104 96 12/01/18 10:40 107 H 13 153/103 96 12/01/18 10:30 107 H 16 153/103 95 12/01/18 10:21 102 H 16 153/80 96 12/01/18 10:11 95 H 29 H 157/104 96 12/01/18 10:00 101 H 21 157/104 92 - Physical Examination General: Other HEENT: Positive: PERRL, Normocephaly, Mucus Membranes Moist Neck: Positive: neck supple, trachea midline Cardiac: Positive: Reg Rate and Rhythm Lungs: Positive: clear to auscultation Neuro: Positive: Grossly Intact Abdomen: Positive: Soft. Negative: Tender Skin: Negative: Rash, Wound Musculoskeletal: No Pain Extremities: Absent: edema - Labs and Meds Coagulation 12/02/18 Range/Units 04:07 PT 12.9 (12.2-14.9) Sec. INR 0.92 (0.87-1.13) CBC 12/02/18 Range/Units 04:07 WBC 9.9 (4.5-11.0) K/mm3 RBC 4.65 (3.65-5.03) M/mm3 Hgb 13.4 (11.8-15.2) gm/dl Hct 40.6 (35.5-45.6) % Plt Count 218 (140-440) K/mm3 Lymph # 0.7 L (1.2-5.4) K/mm3 [place] # 0.3 (0.0-0.8) K/mm3 Eos # 0.0 (0.0-0.4) K/mm3 Baso # 0.0 (0.0-0.1) K/mm3 Comprehensive Metabolic Panel 12/02/18 Range/Units 04:07 Sodium 137 (137-145) mmol/L Potassium 4.3 (3.6-5.0) mmol/L Chloride 101.1 (98-107) mmol/L Carbon Dioxide 22 (22-30) mmol/L BUN 17 (9-20) mg/dL Creatinine 0.8 (0.8-1.5) mg/dL Glucose 181 H (75-100) mg/dL Calcium 8.9 (8.4-10.2) mg/dL - Imaging and Cardiology EKG: report reviewed, image reviewed Echo: pending Cardiac cath: report reviewed (lt main patent, lad mid stent patent mid to distal small vessel focal 90% small diagonal 1, lcx mid 50% om1 mid 95% culprit vessel, rca patent ef 50% lvedp 35 mm hg and pci of om1 with alan resolute onynx 3.0 x 18mm ) - Telemetry EKG Rhythm: Sinus Rhythm - EKG Sinus rhythms and dysrhythmias: sinus rhythm Chamber hypertrophy or enlargement: left ventricular hypertro Repolarization changes or abnormalities: nonspecific abnormality, ST segment, and/or T wave
[2018-12-02] MEDS ORDERED: BABY ASPIRIN PO SCH (11:00)
[2018-12-02] MEDS ORDERED: MORPHINE ONE (11:19)
[2018-12-02] MEDS ORDERED: IMDUR PO SCH (12:30)
--- NOTE | 2018-12-02 13:59 | Cardiac Catherization Report ---
LEFT HEART CATHETERIZATION AND INTRAVASCULAR ULTRASOUND AND PERCUTANEOUS CORONARY INTERVENTION REPORT CLINICAL INFORMATION: This is a 58-year-old gentleman with ETOH abuse and tobacco abuse, coronary artery disease, hypertension, presents with non-ST elevation [place], who is here for left heart catheterization done with moderate sedation, 1 mg Versed, 50 mcg of fentanyl, started sedation at 7:54 a.m., finished at 8:21 a.m. that is 27 minutes of moderate supervise sedation. DESCRIPTION OF PROCEDURE: Procedure was performed in the right radial artery, sterile technique, local anesthesia, 6-Sammarinese radial sheath inserted. Left system engaged with JL3.5 catheter. Left main is large and patent, bifurcates a medium caliber LAD with mid stent patent, but there is focal 90% lesions mid to distal LAD right after small diagonals that are less than 2 mm. Circumflex proximal is patent, obtuse mid is 50% and goes into medium caliber OM, ostial 50%, mid 95% culprit vessel. Distal circumflex and AV groove is small caliber vessel. RCA engaged with JR4, it is a large dominant vessel and it is patent with mild luminal irregularities. PDA and PLV are patent with medium caliber vessel covers the lateral wall. LV gram is done in [place] and [place] view shows borderline LV function approximately 50%, elevated left end-diastolic pressure of 30-35 mmHg. LV was 129 mmHg. Aortic is 126/75. No gradient across the aortic valve on pullback. PERCUTANEOUS CORONARY INTERVENTION: 1. OM engaged the left with EBU 3.5 guiding catheter. 2. Crossed the distal OM with short [place] wire. 3. Predilated with 2.5 x 10 balloon x 2 inflations. 4. An intravascular ultrasound showed distal reference vessel 3-0 in diameter. 5. Stented with a drug-eluting Resolute [place] 3.0 x 18 mm at 12 atmospheres. Excellent angiographic result. No dissection or perforation. Contained NACHO 3 flow. Coronary wire was removed. Multiple angiograms, continued NACHO 3 flow. No dissection or perforation. A 50%,mid circumflex and 50% ostial OM and treat medically. 6. A 6-Sammarinese guiding catheter taken over guidewire, 6-Sammarinese radial sheath was discontinued. Radial dressing applied. No hematoma, no bleeding. SUMMARY: 1. Successful PCI of OM1 with drug-eluting Resolute 3.0 x 18 Resolute [place]. 2. Nonobstructive coronary artery disease and small vessel disease. The LAD to the left main patent, LAD mid stent patent, mid to distal LAD, small vessel, 90% lesions. Circumflex mid 50%, OM1 ostial 50%. RCA large, dominant, patent. Mild irregularities. Borderline LV function with elevated left end-diastolic pressure, treat medically with dual antiplatelet. Discussed with the patient in detail about the importance to take medications. [facility]# [id number] NICK/NTS
[2018-12-02] MEDS: ZESTRIL PO SCH (14:52)
[2018-12-02] MEDS: TOPROL XL PO SCH (14:52)
--- NOTE | 2018-12-02 18:22 | Discharge Summary ---
Providers - Providers Date of Admission: 11/30/18 20:27 Date of discharge: 12/02/18 Attending physician: LOUIS KLEIN 11/30/18 20:30 Consult to Physician [CONS] Urgent Comment: Consulting Provider: PHILIPP BERMAN Physician Instructions: Reason For Exam: cad, stent, cp, + trop 11/30/18 22:28 Consult to Physician [CONS] Routine Comment: Consulting Provider: MADHU RUDD Physician Instructions: Reason For Exam: ICU ADMISSION FOR TITRATION OF NITRODRIP 12/02/18 Consult to Cardiac Rehabilitation [CONS] Routine Reason For Exam: post pci Primary care physician: JEAN FERGUSON Hospitalization Condition: Stable Pertinent studies: Echocardiogram--- ejection fraction 35-40% Procedures: Patient had cardiac cath with intravascular ultrasound and PCI.Obtuse marginal artery was stented Hospital course: Patient's 58-year-old male with past medical history CVA with no residual deficit, hypertension, LA 2 with 2 stents, and COPD (no home O2) presents to the hospital with complaints of left-sided chest pain intermittent with radiation to the left shoulder since this morning. Patient had left-sided chest pain described as stabbing with pain radiation to his left shoulder and arm. Patient has chronic shortness of breath due to COPD. Patient just traveled here from [place] 6 days ago via airplane. Patient has 2 stents in his heart but unfortunately has been noncompliant with all his medications for at least 6 months including Plavix and aspirin. He also started smoking again in June. He doesn't have any medication for COPD as well. Patient was initially admitted to the ICU following initiation of nitroglycerin GTT. His doing well this morning. (1) NSTEMI (non-ST elevated myocardial infarction) (2) Uncontrolled hypertension (3) CAD (coronary artery disease) (4) Stented coronary artery (5) COPD (chronic obstructive pulmonary disease) (6) History of CVA (cerebrovascular accident) without residual deficits (7) Noncompliance with medication regimen (8) Tobacco use (9) EtOH dependence plan Continue supportive care wean nitro drip Continue aspirin, heparin drip, statin therapy, Extensive counseling about compliance with medical management discussed with the patient he verbalized understanding Heart cath done and patient had a stent placed in om1-Obtuse marginal A DVT and GI prophylaxis Monitor for any sign of EtOH withdrawal Plan of care discussed with the patient in detail and also nursing staff Disposition: DC-01 TO HOME OR SELFCARE Core Measure Documentation - Palliative Care Palliative Care/ Comfort Measures: Not Applicable - Core Measures Any of the following diagnoses?: none Exam - Constitutional Vitals: Temp Pulse Resp BP Pulse Ox 98.4 F 88 24 119/78 94 12/02/18 12:14 12/02/18 14:30 12/02/18 18:05 12/02/18 14:53 12/02/18 13:00 General appearance: Present: no acute distress, well-nourished - EENT Eyes: Present: PERRL ENT: hearing intact, clear oral mucosa - Neck Neck: Present: supple, normal ROM - Respiratory Respiratory effort: normal Respiratory: bilateral: CTA - Cardiovascular Heart rate: 78 Rhythm: regular Heart Sounds: Present: S1 & S2. Absent: rub, click - Extremities Extremities: pulses symmetrical, No edema Peripheral Pulses: within normal limits - Abdominal General gastrointestinal: Present: soft, non-tender, non-distended, normal bowel sounds Male genitourinary: Present: normal - Integumentary Integumentary: Present: clear, warm, dry - Musculoskeletal Musculoskeletal: gait normal, strength equal bilaterally - Psychiatric Psychiatric: appropriate mood/affect, intact judgment & insight - Neurologic Neurologic: CNII-XII intact, moves all extremities Plan Activity: no restrictions Diet: low fat, low cholesterol, low salt Special Instructions: smoking cessation Follow up with: JEAN FERGUSON MD [Primary Care Provider] - 3-5 Days MAX VALERIO MD [Staff Physician] - 7 Days
[2018-12-02 18:54] VITALS: BP 118/76
[2018-12-03] MEDS ORDERED: PLAVIX PO SCH (10:00)
== END 2018-12-02 19:00 | disposition home or self-care (01) | DRG 246 ==
LOC: ED 14:47 → 4A 20:27 → CC1 22:31 → 4A 12-01 18:58
PROVIDERS: ADMIT Internal Medicine; ATTEND Internal Medicine
PROC: 4A023N7 Measurement of Cardiac Sampling and Pressure, Left Heart, Percutaneous Approach (ICD-10-PCS; principal; 2018-12-02)
PROC: B2100ZZ Fluoroscopy of Single Coronary Artery using High Osmolar Contrast (ICD-10-PCS; 2018-12-02)
PROC: 027034Z Dilation of Coronary Artery, One Artery with Drug-eluting Intraluminal Device, Percutaneous Approach (ICD-10-PCS; 2018-12-02)
PROC: B2151ZZ Fluoroscopy of Left Heart using Low Osmolar Contrast (ICD-10-PCS; 2018-12-02)
DX: I21.4 Non-ST elevation (NSTEMI) myocardial infarction (principal); I50.31 Acute diastolic (congestive) heart failure; J44.1 Chronic obstructive pulmonary disease with (acute) exacerbation; Z95.5 Presence of coronary angioplasty implant and graft; R74.8 Abnormal levels of other serum enzymes; Z91.14 Patient's other noncompliance with medication regimen; R07.9 Chest pain, unspecified; F17.200 Nicotine dependence, unspecified, uncomplicated; Z86.73 Personal history of transient ischemic attack (TIA), and cerebral infarction without residual deficits; Z91.19 Patient's noncompliance with other medical treatment and regimen; Z79.899 Other long term (current) drug therapy; F10.20 Alcohol dependence, uncomplicated; Y90.9 Presence of alcohol in blood, level not specified; I11.0 Hypertensive heart disease with heart failure
CPT/HCPCS: 36415; 71046; 71275; 80048; 80053; 80061; 82550; 82553; 82962; 84484; 85025; 85347; 85379; 85520; 85610; 85730; 92928; 92978; 93005; 93010; 93306; 93458; 94640; 94760; 96374; 96375; G0378; A9270-GY; C1725; C1753; C1769; C1874; C1887; C1894; C9600; J1644; J2250; J2270; J2930; J3010; J7040; Q9967